=== PATIENT | male | born 1940 | race Caucasian/White ===

== ENCOUNTER → 2020-09-24 | Outpatient (REF) | payer MEDICARE ==
[~2020-09-24] MED LIST: AMLO1TAB24 PO; ASPI-255 PO; BIMA01SOL OU; CALC1TAB40 PO; CLOP75TA2 PO; FISH1000 PO; GLUCTAB6 PO; LISI20TA20 PO; METO1TAB63 PO; SIMV40TA20 PO; VITA20008 PO; VITMTA PO
== END ==
LOC: M LAB REF 13:05
PROVIDERS: ATTEND Ophthalmology
DX: H16.012 Central corneal ulcer, left eye (principal)

== ENCOUNTER → 2020-12-08 | Outpatient (REF) | payer MEDICARE | LOC: M LAB REF 15:03 | PROVIDERS: ATTEND Ophthalmology | DX: D31.1 Benign neoplasm of cornea (principal) ==